=== PATIENT | female | born 1995 | race American Indian/Alaskan Native ===

== ENCOUNTER 2018-01-22 23:16 | Emergency (ER) | payer OTHER ==
[2018-01-23 00:02] LABS: Basophils # (Auto) 0.1 K/mm3 (0.0-0.1); Basophils % (Auto) 2.1 % (0.0-1.8); Eosinophils # (Auto) 0.1 K/mm3 (0.0-0.4); Eosinophils % (Auto) 1.5 % (0.0-4.3); Hematocrit 37.9 % (30.3-42.9); Hemoglobin 13.2 gm/dl (10.1-14.3); Lymphocytes # (Auto) 2.6 K/mm3 (1.2-5.4); Lymphocytes % (Auto) 49.7 % (13.4-35.0); Mean Corpuscular HGB Conc 35 % (30-34); Mean Corpuscular Hemoglobin 32 pg (28-32); Mean Corpuscular Volume 90 fl (79-97); Monocytes # (Auto) 0.4 K/mm3 (0.0-0.8); Monocytes % (Auto) 7.5 % (0.0-7.3); Platelet Count 301 K/mm3 (140-440); Red Cell Distribution Width 12.5 % (13.2-15.2)
[2018-01-23 00:16] LABS: Alanine Aminotransferase 11 units/L (7-56); Albumin 4.5 g/dL (3.9-5); BUN/Creatinine Ratio 9; Blood Urea Nitrogen 7 mg/dL (7-17); Calcium 9.3 mg/dL (8.4-10.2); Hemolysis Index 0
[2018-01-23 01:53] LABS: Bilirubin,Urine NEG (Negative); Blood,Urine NEG (Negative); Color,Urine Yellow (Yellow); Hyaline Casts,Urine 2 /LPF; Mucus,Urine 3+ /HPF; Protein,Urine <15 mg/dL mg/dL (Negative)
[2018-01-23 02:01] LABS: HCG Qualitative,Urine Negative (Negative)
[2018-01-23] MEDS ORDERED: TORADOL IM ONE (02:39)
[2018-01-23] MEDS ORDERED: ULTRAM PO ONE (02:39)
--- NOTE | 2018-01-23 02:56 | Emergency Department Report ---
HPI - General Chief Complaint: Abdominal Pain Time Seen by Provider: 01/23/18 01:16 - HPI HPI: Patient is a 22-year-old female who presents for evaluation of lower abdominal pain. The patient reports lower abdominal pain for the past 3 days, constant since onset, sharp in quality, radiating to the back, currently mild in severity , and associated with dysuria. She submits that she was diagnosed with a UTI 3 days ago. She admits to being on her period the past week. The patient denies fever, chills, night sweats, diarrhea, blood in the stool, dark tarry stool, dysuria, hematuria, flank pain, genital discharge, inability to pass flatus. ED Past Medical Hx - Past Medical History Previous Medical History?: No - Surgical History Past Surgical History?: No - Social History Smoking Status: Never Smoker Substance Use Type: Alcohol - Medications Home Medications: Home Medications Medication Instructions Recorded Confirmed Last Taken Type Acetaminophen/Codeine [Tylenol #3] 1 tab PO Q6H PRN #10 tab 01/23/18 Unknown Rx Ibuprofen [Motrin] 800 mg PO Q8HR PRN #15 tablet 01/23/18 Unknown Rx Ondansetron [Zofran Odt] 4 mg PO Q8HR #14 tab.rapdis 01/23/18 Unknown Rx ED Review of Systems ROS: Stated complaint: SHARP LOWER ABD PAIN/LOWER BACK PAIN Other details as noted in HPI Constitutional: denies: fever ENT: denies: throat or neck pain Respiratory: denies: cough, shortness of breath Cardiovascular: denies: chest pain Endocrine: denies unexplained weight loss or gain Gastrointestinal: reports: abdominal pain, nausea Genitourinary: denies: dysuria Musculoskeletal: denies: leg swelling Skin: denies: rash Neurological: denies: headache Hematological/Lymphatic: denies: easy bleeding or easy bruising Psych: denies sadness or hopelessness Physical Exam - Physical Exam Vital Signs: Vital Signs 01/22/18 01/22/18 01/23/18 23:29 23:33 01:31 Temperature 97.8 F 97.8 F Pulse Rate 69 69 Respiratory 18 18 18 Rate Blood Pressure 128/88 128/88 Blood Pressure 128/88 [Left] O2 Sat by Pulse 97 97 Oximetry Physical Exam: General: well-nourished, well-developed, no acute distress Head: Normocephalic, atraumatic Eyes: normal sclera ENT: Mucous membranes are pink and moist Neck: trachea midline, neck supple, No neck stiffness, no cervical adenopathy Respiratory: Breath sounds equal bilaterally, no wheezing, rales, or rhonchi Cardio: S1 and S2 present, no murmurs, rubs, gallops, capillary refill is brisk Abdomen: Normoactive bowel sounds, soft abdomen, suprapubic tenderness to palpation present, no pain in McBurney's point with palpation, Palmer sign negative, no appreciable pelvic or inguinal mass, no rigidity, no guarding or rebound tenderness Chest WALL/Back: No tenderness to palpation of the chest wall, no CVA tenderness with percussion Musc: No pitting edema Skin: No rash Neuro: no facial drooping, normal speech Psych: Normal affect ED Course Vital Signs 01/22/18 01/22/18 01/23/18 23:29 23:33 01:31 Temperature 97.8 F 97.8 F Pulse Rate 69 69 Respiratory 18 18 18 Rate Blood Pressure 128/88 128/88 Blood Pressure 128/88 [Left] O2 Sat by Pulse 97 97 Oximetry ED Medical Decision Making - Lab Data Result diagrams: 01/22/18 23:48 01/22/18 23:48 - Medical Decision Making The patient was seen and examined by myself. The patient is placed on a roll forming machine set up mechanic and continuous pulse ox. On initial evaluation, the patient was found to be in no distress. Evaluation orders are placed. The patient is given IM dose of Toradol for pain. Lab results were non-concerning including WBC, hemoglobin, hematocrit, electrolytes, renal function, neg preg, and urinalysis. The patient was reevaluated and reported that their symptoms were markedly improved. The patient is stable for discharge with outpatient follow- up. The patient is given follow-up and return instructions. The patient expressed understanding and agreed with the plan. The patient is discharged in stable condition. Critical care attestation.: If time is entered above; I have spent that time in minutes in the direct care of this critically ill patient, excluding procedure time. ED Disposition Clinical Impression: Acute abdominal pain Disposition: DC-01 TO HOME OR SELFCARE Is pt being admited?: No Does the pt Need Aspirin: No Condition: Stable Instructions: Abdominal Pain (ED), Ovarian Cyst (ED) Referrals: [facility] [Provider Group] - 3-5 Days Forms: Work/School Release Form(ED) Time of Disposition: 03:06
[2018-01-23 03:56] VITALS: BP 111/55
== END 2018-01-23 03:55 | disposition home or self-care (01) ==
LOC: ED 23:16
DX: R10.30 Lower abdominal pain, unspecified (principal); R30.0 Dysuria; Z88.1 Allergy status to other antibiotic agents; Z88.2 Allergy status to sulfonamides
CPT/HCPCS: 36415; 80053; 81001; 81025; 85025; 96372; 99284; J1885